=== PATIENT | female | born 1965 | race Caucasian/White ===

== ENCOUNTER 2022-08-07 09:57 | Outpatient (CLI) | payer BC | END 2022-08-07 09:58 | disposition home or self-care (01) | LOC: NAV RAD 09:57 | PROVIDERS: ATTEND Nurse Practitioner Family | DX: M25.562 Pain in left knee (principal); M17.12 Unilateral primary osteoarthritis, left knee ==

== ENCOUNTER 2022-12-10 09:00 | Emergency (ER) | payer OTHER, BC ==
[2022-12-10] MEDS ORDERED: Bacitracin 1 PK ONE (09:17)
[2022-12-10] MEDS ORDERED: Boostrix 0.5 ML (Tdap) VIAL (>/=7 yrs of age) ONE (09:17)
[2022-12-10] MEDS ORDERED: Lidocaine 1% w/Epinephrine 1:100K 20 ML VIAL ONE (09:17)
== END 2022-12-10 09:55 | disposition home or self-care (01) ==
LOC: NAV ERS 09:00
DX: S50.12XA Contusion of left forearm, initial encounter (principal); E78.5 Hyperlipidemia, unspecified; W22.8XXA Striking against or struck by other objects, initial encounter; Y93.89 Activity, other specified; Z23 Encounter for immunization; Z79.899 Other long term (current) drug therapy
CPT/HCPCS: 90471; 90715